=== PATIENT | female | born 1980 | race Caucasian/White ===

== ENCOUNTER 2017-06-01 12:38 | Outpatient (CLI) | payer BC | END 2017-06-01 12:39 | disposition home or self-care (01) | LOC: BICMAMMO 12:38 | PROVIDERS: ATTEND Obstetrics & Gynecology | DX: Z12.31 Encounter for screening mammogram for malignant neoplasm of breast (principal); Z80.3 Family history of malignant neoplasm of breast | CPT/HCPCS: 77063; 77067 ==

== ENCOUNTER 2017-09-18 09:34 | Outpatient (CLI) | payer BC ==
--- NOTE | 2017-09-18 11:08 | ULT ---
COMPLETE ABDOMEN ULTRASOUND: INDICATION: Abdominal pain. Weight loss and diarrhea. FINDINGS: Abdominal aorta and IVC are within normal limits. Visualized pancreas is unremarkable. The liver measures 14 cm in length. The spleen measured 10.8 cm. The gallbladder is normal appearing. No sonographic Cheney's sign is reported. The common bile duct measures 3 mm. Visualized pancreas is unremarkable. The right kidney measures 11.0 x 4.2 x 4.6 cm. The left kidney measures 12.0 x 4.7 x 4.6 cm. IMPRESSION: No acute sonographic abnormality is seen. POS: [facility]
== END 2017-09-18 09:35 | disposition home or self-care (01) ==
LOC: SCSULT 09:34
PROVIDERS: ATTEND Family Medicine
DX: R19.7 Diarrhea, unspecified (principal); R63.4 Abnormal weight loss
CPT/HCPCS: 76700

== ENCOUNTER 2018-06-09 08:52 | Outpatient (CLI) | payer BC ==
--- NOTE | 2018-06-09 11:14 | MMO ---
Bilateral MAMMO Bilat Screen [facility]. CLINICAL HISTORY: Patient is 37 years old and is seen for screening. The patient has the following family history of breast cancer: mother, at age 47 and paternal grandmother, in her 70's (2X). The patient has no personal history of cancer. The patient has a history of left Ultrasound Guided Core Biopsy in Jul, 2016 - benign. VIEWS: The views performed were: bilateral craniocaudal with tomosynthesis; bilateral mediolateral oblique with tomosynthesis; and bilateral exaggerated craniocaudal. FILMS COMPARED: The present examination has been compared to prior imaging studies performed at [facility] on 07/19/2014, 07/25/2015, 04/18/2016 and 06/01/2017, and at [place], [place] on 03/18/2011. MAMMOGRAM FINDINGS: The breasts are heterogeneously dense, which could obscure a lesion on mammography. There are no suspicious masses, suspicious calcifications, or new areas of architectural distortion. IMPRESSION: THERE IS NO MAMMOGRAPHIC EVIDENCE OF MALIGNANCY. A ROUTINE FOLLOW-UP MAMMOGRAM AT AGE 39 IS RECOMMENDED. THE RESULTS OF THIS EXAM WERE SENT TO THE PATIENT. ACR BI-RADS Category 1 - Negative MAMMOGRAPHY NOTE: 1. A negative mammogram report should not delay a biopsy if a dominant of clinically suspicious mass is present. 2. Approximately 10% to 15% of breast cancers are not detected by mammography. 3. Adenosis and dense breasts may obscure an underlying neoplasm.
== END 2018-06-09 08:53 | disposition home or self-care (01) ==
LOC: BICMAMMO 08:52
PROVIDERS: ATTEND Obstetrics & Gynecology
DX: Z12.31 Encounter for screening mammogram for malignant neoplasm of breast (principal); Z80.3 Family history of malignant neoplasm of breast
CPT/HCPCS: 77063; 77067

== ENCOUNTER 2019-08-31 08:30 | Outpatient (CLI) | payer BC ==
--- NOTE | 2019-08-31 09:10 | ULT ---
EXAM: US Breast Limited Lt PROVIDED CLINICAL HISTORY: Left breast palpable abnormality COMPARISON: None FINDINGS: Limited sonographic interrogation was performed of the left breast in the region of palpable concern. The sonographic appearance of the breast tissue in this region is normal. IMPRESSION: No sonographic abnormality is evident in the region of clinical concern. Negative imaging findings sh ould not preclude further evaluation of a clinically suspicious finding. Patient is referred back to her clinician.
--- NOTE | 2019-08-31 09:10 | MMO ---
Bilateral MAMMO Bilat Diag [facility]. CLINICAL HISTORY: Patient is 38 years old and is seen for diagnostic exam and lump or thickening in the axillary tail of the left breast. The patient has the following family history of breast cancer: mother, at age 47 and paternal grandmother, in her 70's (2X). The patient has no personal history of cancer. The patient has a history of left Ultrasound Guided Core Biopsy in Jul, 2016 - benign. VIEWS: The views performed were: bilateral craniocaudal with tomosynthesis; bilateral mediolateral oblique with tomosynthesis; and bilateral mediolateral with tomosynthesis. FILMS COMPARED: The present examination has been compared to prior imaging studies performed at [facility] on 06/01/2017, 06/09/2018 and 08/31/2019. This study has been interpreted with the assistance of computer-aided detection. MAMMOGRAM FINDINGS: The breasts are heterogeneously dense, which could obscure a lesion on mammography. There are no suspicious masses, suspicious calcifications, or new areas of architectural distortion. There is axillary breast tissue redemonstrated on the left, correponding to the area of palpable concern. Sonographic findings are negative. IMPRESSION: THERE ARE NO CONCERNING MAMMOGRAPHIC OR SONOGRAPHIC ABNORMALITIES IN THE AREA OF PALPABLE CONCERN. THE PATIENT IS REFERRED BACK TO HER CLINICIAN. NEGATIVE IMAGING FINDINGS SHOULD NOT PRECLUDE BIOPSY IF CLINICAL FINDINGS ARE SUSPICIOUS. THE RESULTS OF THIS EXAM WERE SENT TO THE PATIENT. ACR BI-RADS Category 1 - Negative MAMMOGRAPHY NOTE: 1. A negative mammogram report should not delay a biopsy if a dominant of clinically suspicious mass is present. 2. Approximately 10% to 15% of breast cancers are not detected by mammography. 3. Adenosis and dense breasts may obscure an underlying neoplasm. Reported by: OSEAS GONZALEZ MD Electonically Signed: [id number]
== END 2019-08-31 08:31 | disposition home or self-care (01) ==
LOC: BICMAMMO 08:30
PROVIDERS: ATTEND Obstetrics & Gynecology
DX: N63.20 Unspecified lump in the left breast, unspecified quadrant (principal)
CPT/HCPCS: 77066; G0279